=== PATIENT | female | born 1975 ===

== ENCOUNTER 2018-11-22 17:58 | Emergency (ER) | payer OTHER ==
[2018-11-22 17:58] VITALS: BMI 24.4
[2018-11-22 18:32] VITALS: BP 122/73; PULSE 79; RESP 18; TEMP 99.3; O2SAT 98
[2018-11-22] MEDS ORDERED: Tdap Vaccine 0.5 ml Vial (10-64 yrs) IM ONE ×2 (19:14→19:21)
--- NOTE | 2018-11-22 19:14 | C.PDOC ---
History Of Present Illness 43 year old female presents to the ED for evaluation after she sustained a dog bite earlier today. 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 While at work today, patient sustained a bite to her left ear. She states the dog is up-to-date with immunizations. Patient states she is not up-to-date with Tetanus immunization. She denies any other injuries, fever, chills, or active bleeding at this time. Chief Complaint (Nursing): Bite History Per: Patient History/Exam Limitations: no limitations Onset/Duration Of Symptoms: Hrs Current Symptoms Are (Timing): Still Present Location Of Injury: Left: Face (ear) Quality Of Symptoms: Painful Additional History Per: Patient - Animal Bite Description Of The Attack: Other (works as bag loader ) Description Of The Animal: Other (customer's pet) Reports Animal Appears: Well Reports Animal's Immunization Status: UTD Past Medical History Reviewed: Historical Data, Nursing Documentation, Vital Signs Vital Signs: Last Vital Signs Temp 99.3 F 11/22/18 18:30 Pulse 79 11/22/18 18:30 Resp 18 11/22/18 18:30 BP 122/73 11/22/18 18:30 Pulse Ox 98 11/22/18 18:30 - Medical History PMH: No Chronic Diseases Surgical History: Appendectomy Family History: States: Unknown Family Hx - Social History Hx Alcohol Use: No Hx Substance Use: No - Immunization History Hx Tetanus Toxoid Vaccination: Yes Hx Influenza Vaccination: Yes Hx Pneumococcal Vaccination: No Review Of Systems Constitutional: Negative for: Fever, Chills, Weakness Respiratory: Negative for: Cough, Shortness of Breath Skin: Positive for: Other (dog bite to left ear ) Neurological: Negative for: Weakness, Numbness, Dizziness Physical Exam - Physical Exam Appears: Well, Non-toxic, No Acute Distress Skin: Normal Color, Warm, No Rash, Other (1cm laceration to posterior aspect of left outer ear that is not [id number]. no active bleeding ) Head: Atraumatic, Normacephalic Eye(s): bilateral: Normal Inspection Oral Mucosa: Moist Neck: Normal ROM, Supple Extremity: Normal ROM Extremity: Bilateral: Atraumatic Neurological/Psych: Oriented x3, Normal Cranial Nerves (grossly intact ) ED Course And Treatment O2 Sat by Pulse Oximetry: 98 (on RA) Pulse Ox Interpretation: Normal Laceration - Laceration Repair left ear Wound Length (In cm): 1 Description Of Wound: Linear Wound Examination: Irrigated With Saline, No FB With Wound Exploration, No Tendon Injury With Wound Exploration Wound Closure: Skin Glue (Dermabond ) Wound Complexity: Simple Medical Decision Making Medical Decision Making: Progress: Patient given Tetanus IM. Augmentin PO given. 1cm laceration to posterior aspect of left outer ear. Area was irrigated with normal saline. Laceration sealed with Dermabond skin adhesive. Patient tolerated well with minimal bleeding. Considering the laceration is on the ear, will prescribe Augmentin to prevent possible infection at the site. Disposition Counseled Patient/Family Regarding: Diagnosis, Need For Followup - Disposition Disposition: HOME/ ROUTINE Disposition Time: 19:14 Condition: IMPROVED Prescriptions: Amoxicillin/Clavulanate [Augmentin 875 MG-125 MG] 1 tab PO BID 5 Days tab Instructions: Animal Bites (DC), Laceration Repair With Glue (DC) Forms: Gen Discharge Inst Niuean, [employer] (Niuean) Print Language: SINHALA - Clinical Impression Clinical Impression: Dog bite of ear - PA / [employer]CR[employer]ER / Resident Statement MD/DO has reviewed & agrees with the documentation as recorded. - Scribe Statement The provider has reviewed the documentation as recorded by the Scribe (Tita Savage) All medical record entries made by the Scribe were at my direction and personally dictated by me. I have reviewed the chart and agree that the record accurately reflects my personal performance of the history, physical exam, medical decision making, and the department course for this patient. I have also personally directed, reviewed, and agree with the discharge instructions and disposition.
[2018-11-22] MEDS ORDERED: Amoxicillin-Clav 875-125 mg Tab PO ONE (19:37)
[2018-11-22] MEDS ORDERED: Amoxicillin-Clav 875-125 mg Tab PO STA (19:48)
== END 2018-11-22 19:52 | disposition home or self-care (01) ==
LOC: C.ER 17:58
DX: S01.312A Laceration without foreign body of left ear, initial encounter (principal); W54.0XXA Bitten by dog, initial encounter; Y92.89 Other specified places as the place of occurrence of the external cause; Y99.0 Civilian activity done for income or pay